=== PATIENT | female | born 1985 | race African-American/Black ===

== ENCOUNTER 2016-07-19 19:41 | Inpatient (IN) | payer OTHER ==
[2016-07-19 20:07] VITALS: BMI 32.9
--- NOTE | 2016-07-19 20:13 | PDOC ---
History of Present Illness - General History Source: Patient Exam Limitations: No Limitations - History of Present Illness Initial Comments: 07/19/16 21:32 The patient is a 30 year old female presenting with her family, with no significant past medical history, who presents to the emergency department with abdominal pain, chills, fever and headache s/p 9 days ago. She describes her abdominal pain as ranging from moderate to severe, without radiation. She notes that the pain is exacerbated with movement. She also notes that the pain has been progressing in severity since the . She states that the pain is localized in the site and mildly in her epigastric. She notes that she has recently noted a foul order coming from the incision site. She notes that she is currently breast feeding her and is experiencing some breast pain. She states that she had a similar experience last time she had a . She describes her headache as mild, without radiation or modifying factors. The patient denies chest pain, shortness of breath and dizziness. Denies nausea , vomit, diarrhea and constipation. Denies dysuria, frequency, urgency and hematuria. Allergies: None Past surgical history: (x2) Social history: No alcohol, tobacco or drug use reported <Juno Hillman - Last Filed: 07/20/16 01:45> <Lukas Ann - Last Filed: 07/20/16 02:11> - General Chief Complaint: Pain Stated Complaint: PAIN Time Seen by Provider: 07/19/16 20:13 Past History <Juno Hillman - Last Filed: 07/20/16 01:45> - Psycho/Social/Smoking Cessation Hx Anxiety: No Suicidal Ideation: No Smoking History: Never smoked Have you smoked in the past 12 months: No Information on smoking cessation initiated: No Hx Alcohol Use: No Drug/Substance Use Hx: No Substance Use Type: None <Lukas Ann - Last Filed: 07/20/16 02:11> - Past Medical History Allergies/Adverse Reactions: Allergies Allergy/AdvReac Type Severity Reaction Status Date / Time shellfish derived Allergy Verified 06/10/16 21:30 Home Medications: Ambulatory Orders Iron 18 mg PO DAILY 05/12/16 Vits #93/Iron Fum/FA [ Formula Tablet] 1 each PO DAILY Review of Systems - Review of Systems Able to Perform ROS?: Yes Comments:: 07/19/16 21:32 CONSTITUTIONAL: (+) Fever, chills. No fatigue EYES: No visual changes ENT: No ear pain, no sore throat CARDIOVASCULAR: No chest pain, no palpitations RESPIRATORY: No cough, no SOB GI: (+) Abdominal pain. No nausea, no vomiting, no constipation, no diarrhea GENITOURINARY: No dysuria, no frequency, no hematuria MUSKULOSKELETAL: No backpain, no joint pain, no myalgias SKIN: No rash NEURO: (+) headache <Juno Hillman - Last Filed: 07/20/16 01:45> *Physical Exam - Vital Signs Last Vital Signs Temp Pulse Resp BP Pulse Ox 102.2 F H 101 H 20 102/61 98 07/19/16 20:03 07/19/16 20:03 07/19/16 20:03 07/19/16 20:03 07/19/16 20:03 <Juon Hillman - Last Filed: 07/20/16 01:45> - Vital Signs Last Vital Signs Temp Pulse Resp BP Pulse Ox 102.2 F H 101 H 20 102/61 98 07/19/16 20:03 07/19/16 20:03 07/19/16 20:03 07/19/16 20:03 07/19/16 20:03 - Physical Exam Comments: 07/19/16 21:36 EXAMINATION CONSTITUTIONAL: Awake and alert; well-nourished; in mild distress HEAD: Normocephalic; atraumatic EYES: PERRL; EOM intact; no photophobia ENMT: External appears normal; mm-dry NECK: Supple; non-tender; no cervical lymphadenopathy CARD: Normal S1, S2; no murmurs, rubs, or gallops RESP: Normal chest excursion with respiration; breath sounds clear and equal bilaterally; no wheezes, rhonchi, or rales ABD: Soft, non-distended; + mild to moderate suprapubic, left lower quadrant and periumbilical tenderness to palpation; infraumbilical transverse incision reveals small area of dehiscence with drainage of foul-smelling discharge; no palpable organomegaly, no palpable hernias EXT: Normal ROM in all four extremities; non-tender to palpation; distal pulses intact SKIN: Warm, dry, no rash NEURO: No focal neurological deficiencies. <Lukas Ann - Last Filed: 07/20/16 02:11> ED Treatment Course - LABORATORY CBC & Chemistry Diagram: 07/19/16 20:40 07/19/16 20:40 - ADDITIONAL ORDERS Additional order review: Laboratory Results 07/19/16 20:56 VBG pH 7.33 POC VBG pCO2 35.5 L POC VBG pO2 37.2 Mixed VBG HCO3 18.3 L 07/19/16 20:40 RBC 4.28 MCV 84.5 MCHC 32.4 RDW 14.0 MPV 8.2 Neutrophils % Y Lymphocytes % Y - Medications Given in the ED: ED Medications Discontinued Medications Generic Name Dose Route Start Last Admin Trade Name Freq PRN Reason Stop Dose Admin Acetaminophen 1,000 mg 07/19/16 20:27 07/19/16 20:30 Ofirmev Injection - IVPB 07/19/16 20:28 1,000 mg ONCE ONE Administration <Juno Hillman - Last Filed: 07/20/16 01:45> - LABORATORY CBC & Chemistry Diagram: 07/19/16 20:40 07/19/16 20:40 <Lukas Ann - Last Filed: 07/20/16 02:11> Medical Decision Making - Medical Decision Making 07/20/16 01:44 Dr. Ku was consulted regarding the patient. [phone] <Juno Hillman - Last Filed: 07/20/16 01:45> - Medical Decision Making 07/20/16 02:09 Patient is a 30-year-old female, 10 days post at who presents with high fever, shaking chills, generalized weakness and malaise, with lower abdominal pain and drainage of foul-smelling material through the incision site. Differential diagnosis includes endometritis versus wound infection. Blood and urine cultures been obtained. Patient has received IV Zosyn as well as 2 L of normal saline. Chest x-ray reveals no evidence of infiltrate or effusion. Transvaginal ultrasound shows small amount of fluid within the endometrial cavity within the lower uterine segment as well as questionable echogenic material within the endometrial cavity itself. Numerous hyperechoic foci were identified of unclear etiology and CT of abdomen and pelvis was recommended for better identification. Patient remains hemodynamically stable and will be transferred to [facility] [place] and treatment <Lukas Ann - Last Filed: 07/20/16 02:11> *DC/Admit/Observation/Transfer - Attestations Scribe Attestion: 07/19/16 21:32 Documentation prepared by Juno Hillman, acting as spanish medical interpreter for Lukas Ann MD <Juno Hillman - Last Filed: 07/20/16 01:45> - Discharge Dispostion Admit: Yes <Lukas Ann - Last Filed: 07/20/16 02:11> Diagnosis at time of Disposition: Endometritis following delivery - Referrals
[2016-07-19] MEDS ORDERED: ACETAMINOPHEN 325 MG TABLET (FP) ONE (20:19)
[2016-07-19] MEDS ORDERED: SODIUM CHLORIDE 0.9% 1000 ML INFUS.BAG IV PRN (20:25)
[2016-07-19] MEDS ORDERED: ACETAMINOPHEN 1000 MG/100 ML VIAL (NON FORMULARY) IVPB ONE (20:27)
[2016-07-19] MEDS ORDERED: ACETAMINOPHEN INJECTION 100 ML IVPB ONE (20:36)
[2016-07-19 20:57] LABS: MCH 27.4 pg (25.7-33.7); MCHC 32.4 g/dl (32.0-36.0); MEAN CELL VOLUME 84.5 fl (80-96); MEAN PLT VOLUME 8.2 fl (7.5-11.1); PLATELET COUNT 388 K/MM3 (134-434); WHITE BLOOD COUNT 18.2 K/mm3 (4.0-10.0)
[2016-07-19 21:10] LABS: VENOUS BLOOD GAS HCO3 18.3 meq/L (19-25); VENOUS PH 7.33 (7.32-7.42)
[2016-07-19 21:22] LABS: ALBUMIN 3.2 g/dl (3.4-5.0); ANION GAP 11 (8-16); CALCIUM 8.4 mg/dL (8.5-10.1); CO2 21 mmol/L (21-32); GLUCOSE,RANDOM 76 mg/dL (74-106)
[2016-07-19 21:27] LABS: ALK PHOS 106 U/L (45-117); BILIRUBIN,TOTAL 0.4 mg/dL (0.2-1.0); CREATININE 0.9 mg/dL (0.55-1.02); SGOT/AST 12 U/L (15-37); SGPT/ALT 19 U/L (12-78); TOT PROT 6.9 g/dl (6.4-8.2); TROPONIN I < 0.02 ng/ml (0.00-0.05)
[2016-07-19] MEDS ORDERED: PIPERACILLIN/TAZOB 4.5 GM/100 ML PRE-DOCKED IVPB ONE (21:29)
[2016-07-19] MEDS ORDERED: PIPERACILLIN/TAZOB 4.5 GM 100 ML IVPB ONE (21:57)
[2016-07-19 21:59] LABS: INR 1.34 (0.82-1.09); PROTHROMBIN TIME (PATIENT) 14.8 SEC (9.98-11.88)
[2016-07-19 22:02] LABS: ACTIVATED PTT 31.6 SECONDS (26.9-34.4)
[2016-07-19 22:04] LABS: URINE APPEARANCE CLEAR; URINE BILIRUBIN NEGATIVE (NEGATIVE); URINE COLOR YELLOW; URINE GLUCOSE (UA) NEGATIVE (NEGATIVE); URINE KETONE 1+ (NEGATIVE); URINE LEUK ESTERASE NEGATIVE (NEGATIVE); URINE NITRITE NEGATIVE (NEGATIVE); URINE UROBILINOGEN NEGATIVE E.U./dl (0.2-1.0)
[2016-07-19 22:22] LABS: URINE BLOOD 1+ (NEGATIVE); URINE PROTEIN 1+ (NEGATIVE)
[2016-07-19 22:38] LABS: URINE MUCUS MANY; URINE RBC 3 /hpf (0-3); URINE WBC 5 /hpf (3-5)
[2016-07-19] MEDS ORDERED: SODIUM CHLORIDE 1,000 ML IV STA (22:40)
[2016-07-19] MEDS ORDERED: DEXTROSE 5%-LACTATED RINGERS 1,000 ML IV SCH (23:05)
[2016-07-20] MEDS ORDERED: morphine CARPU-JECT 2 MG/1 ML DISP.SYRIN IVPUSH ONE (00:57)
[2016-07-20] MEDS ORDERED: DEXTROSE 5%-0.45% SALINE 1,000 ML IV SCH (01:00)
[2016-07-20] MEDS ORDERED: morphine CARPU-JECT 2 MG/1 ML DISP.SYRIN ONE (01:05)
[2016-07-20] MEDS: ACETAMINOPHEN 325 MG TABLET (FP) PO PRN ×5 (04:50→23:03)
[2016-07-20] MEDS ORDERED: IBUPROFEN 600 MG TABLET (FP) PO PRN (04:55)
[2016-07-20] MEDS: oxyCODONE HCL 5 MG TABLET PO PRN ×4 (05:05→23:03)
[2016-07-20 08:41] LABS: BASOPHIL 0.2 % (0-2.0); EOSINOPHIL 0.6 % (0-4.5); MCH 27.8 pg (25.7-33.7); MCHC 33.1 g/dl (32.0-36.0); MEAN PLT VOLUME 8.5 fl (7.5-11.1); NEUTROPHILS 89.4 % (42.8-82.8); PLATELET COUNT 330 K/MM3 (134-434); RDW 14.1 % (11.6-15.6); WHITE BLOOD COUNT 14.1 K/mm3 (4.0-10.0)
[2016-07-20 08:46] LABS: ALBUMIN 2.5 g/dl (3.4-5.0); ALK PHOS 86 U/L (45-117); ANION GAP 13 (8-16); BILIRUBIN,TOTAL 0.3 mg/dL (0.2-1.0); CALCIUM 7.6 mg/dL (8.5-10.1); CO2 20 mmol/L (21-32); CREATININE 0.8 mg/dL (0.55-1.02); GLUCOSE,RANDOM 87 mg/dL (74-106); SGOT/AST 9 U/L (15-37); SGPT/ALT 16 U/L (12-78); TOT PROT 5.6 g/dl (6.4-8.2)
--- NOTE | 2016-07-20 10:15 | CONSULT ---
Consultation: REQUESTING PROVIDER: CONSULT REQUEST: We have been asked to medically evaluate this patient for ( specify). HISTORY OF PRESENT ILLNESS: 30 y/o AAF s/p c section 10 days ago at [facility] presented to ED c/o fever, chills and malaise with lower quadrant abdominal pain. Patient also c/o foul drainage from incision. At the time of evaluation patient was lethargic and unable to give extensive history. Patient had h/o emergency for fever and possible infection during her first 11 years ago, and had complication of abdominal pain diagnosed as choleliathiasis during this current . Denies any history of STIs. PMH: asthma and anxiety PSH: 3 c-sections SH: Denies smoking, drinking or drug use FMH: noncontributory REVIEW OF SYSTEMS: CONSTITUTIONAL: Absent: fever, chills, diaphoresis, generalized weakness, malaise, loss of appetite, weight change HEENT: Absent: rhinorrhea, nasal congestion, throat pain, throat swelling, difficulty swallowing, mouth swelling, ear pain, eye pain, visual changes CARDIOVASCULAR: Absent: chest pain, syncope, palpitations, irregular heart rate, lightheadedness , peripheral edema RESPIRATORY: Absent: cough, shortness of breath, dyspnea with exertion, orthopnea, wheezing, stridor, hemoptysis GASTROINTESTINAL: Absent: abdominal pain, abdominal distension, nausea, vomiting, diarrhea, constipation, melena, hematochezia GENITOURINARY: Absent: dysuria, frequency, urgency, hesitancy, hematuria, flank pain, genital pain MUSCULOSKELETAL: Absent: myalgia, arthralgia, joint swelling, back pain, neck pain SKIN: Foul smelling drainage from incision site Absent: rash, itching, pallor HEMATOLOGIC/IMMUNOLOGIC: Absent: easy bleeding, easy bruising, lymphadenopathy, frequent infections ENDOCRINE: Absent: unexplained weight gain, unexplained weight loss, heat intolerance, cold intolerance NEUROLOGIC: Absent: headache, focal weakness or paresthesias, dizziness, unsteady gait, seizure, mental status changes, bladder or bowel incontinence PSYCHIATRIC: Absent: anxiety, depression, suicidal or homicidal ideation, hallucinations. PHYSICAL EXAMINATION Vital Signs - 24 hr 07/19/16 07/20/16 07/20/16 23:35 01:17 03:30 Temperature 99.7 F H 100.7 F H Pulse Rate Pulse Rate [ 82 90 Apical] Respiratory 16 16 Rate Blood Pressure Blood Pressure 110/68 121/75 [Left Arm] O2 Sat by Pulse 96 99 96 Oximetry (%) 07/20/16 07/20/16 04:20 06:00 Temperature 103 F H 100.4 F H Pulse Rate 92 H 86 Pulse Rate [ Apical] Respiratory 20 16 Rate Blood Pressure 126/72 110/62 Blood Pressure [Left Arm] O2 Sat by Pulse Oximetry (%) GENERAL: Awake, lethargic, and fully oriented, in mild distress. HEAD: Normal with no signs of trauma. EYES: Pupils equal, round and reactive to light, extraocular movements intact, sclera anicteric, conjunctiva clear. No lid lag. EARS, NOSE, THROAT: Ears normal, nares patent, oropharynx clear without exudates. Moist mucous membranes. NECK: Normal range of motion, supple without lymphadenopathy, JVD, or masses. LUNGS: Breath sounds equal, clear to auscultation bilaterally. No wheezes, and no crackles. No accessory muscle use. HEART: Regular rate and rhythm, normal S1 and S2 without murmur, rub or gallop. ABDOMEN: Soft, generalized tenderness, nondistended, normoactive bowel sounds, guarding, no rebound, no masses. No hepatomegaly or splenomegaly. MUSCULOSKELETAL: Normal range of motion at all joints. No bony deformities or tenderness. No CVA tenderness. UPPER EXTREMITIES: 2+ pulses, warm, well-perfused. No cyanosis. No clubbing. Cap refill <2 seconds. No peripheral edema. LOWER EXTREMITIES: 2+ pulses, warm, well-perfused. No calf tenderness. No peripheral edema. NEUROLOGICAL: Cranial nerves II-XII intact. Normal speech. PSYCHIATRIC: Cooperative. Good eye contact. Appropriate mood and affect. SKIN: Warm, dry, normal turgor, no rashes or lesions noted. Suprapubic incision without erythema or signs of infection. Laboratory Results - last 24 hr 07/20/16 07/20/16 07:30 07:30 WBC 14.1 H RBC 3.65 Hgb 10.1 L D Hct 30.6 L D MCV 84.0 MCHC 33.1 RDW 14.1 Plt Count 330 MPV 8.5 Neutrophils % 89.4 H Lymphocytes % 6.5 L Monocytes % 3.3 L D Eosinophils % 0.6 Basophils % 0.2 Sodium 141 Potassium 3.5 Chloride 108 H Carbon Dioxide 20 L Anion Gap 13 BUN 9 D Creatinine 0.8 Creat Clearance w eGFR > 60 Random Glucose 87 Calcium 7.6 L Total Bilirubin 0.3 D AST 9 L D ALT 16 Alkaline Phosphatase 86 Total Protein 5.6 L Albumin 2.5 L D Active Medications Generic Name Dose Route Start Last Admin Trade Name Freq PRN Reason Stop Dose Admin Acetaminophen 650 mg 07/19/16 23:05 07/20/16 04:50 Tylenol - PO 650 mg Q6H PRN Administration Acetaminophen 325 mg 07/20/16 04:56 07/20/16 09:33 Tylenol - PO 07/23/16 04:55 325 mg Q4H PRN Administration PAIN Ibuprofen 600 mg 07/20/16 04:55 Motrin - PO Q8H PRN FEVER Oxycodone HCl 5 mg 07/20/16 04:56 07/20/16 09:29 Roxicodone - PO 5 mg Q4H PRN Administration PAIN ASSESSMENT/PLAN: Sepsis secondary to endometritis, pospartum. Patient started on Zosyn 4.75 mg in ED and appears to be responding as WBCs are trending down will continue with stat dose of Zosyn. Continue IVF and ABx as per ID consult and culture and sensitives from bld cx and UC. Continue pain medication oxycodone q4h prn for severe pain Please continue care as per ID and [employer]. Dispo: Reconsult as needed.Thank you for this consultative opportunity. Problem List - Problems (1) Sepsis Code(s): A41.9 - SEPSIS, UNSPECIFIED ORGANISM (2) Endometritis following delivery Code(s): O86.12 - ENDOMETRITIS FOLLOWING DELIVERY Visit type - Emergency Visit Emergency Visit: Yes ED Registration Date: 07/19/16 Care time: The patient presented to the Emergency Department on the above date and was hospitalized for further evaluation of their emergent condition. - New Patient This patient is new to me today: Yes Date on this admission: 07/20/16 - Critical Care Critical Care patient: No
[2016-07-20] MEDS ORDERED: PIPERACILLIN/TAZOB 4.5 GM/100 ML PRE-DOCKED IVPB ONE (11:00)
--- NOTE | 2016-07-20 11:06 | PN ---
Progress Note (short form) - Note Progress Note: ID consult dictated imp/reccd 30 year old female s/p csection 07/09 at [facility], discharged home 07/12- (no antibiotics) has had persistent abdominal pain since discharge home.yesterday had fever and foul smelling drainage from the csection incision and came to ED has been taking motrin for pain every 5 hours since discharge home no nausea or vomiting fever to 103 CT scan /transvaginal sono done in ED, official report pending started on zosyn cllinically temps are down but she is still uncomfortable with abdominal pain , currently no erythema or drainage from the wound most of the pain is located to the left aspect of the wound fevers post csection on 07/09 with abdominal pain ?wound infection (reports drainage now resolved) ?endometritis vanco/zosyn official reading of ct scan 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
--- NOTE | 2016-07-20 12:06 | EKG ---
Test Reason : Blood Pressure : / mmHG Vent. Rate : 082 BPM Atrial Rate : 082 BPM P-R Int : 160 ms QRS Dur : 072 ms QT Int : 376 ms P-R-T Axes : 064 017 005 degrees QTc Int : 439 ms NORMAL SINUS RHYTHM POSSIBLE LEFT ATRIAL ENLARGEMENT NONSPECIFIC T WAVE ABNORMALITY ABNORMAL ECG NO PREVIOUS ECGS AVAILABLE Confirmed by MD PIERCE, SHIRA ([id number]) on 07/20/2016 12:06:21 PM Referred By: Confirmed By:SHIRA PELAYO MD
[2016-07-20] MEDS: VANCOMYCIN 1 GRAM (PRE-DOCKED) 1,000 MG/250 ML BAG IVPB SCH (12:10)
--- NOTE | 2016-07-20 14:11 | CONS ---
DATE OF CONSULTATION: 07/20/2016 INFECTIOUS DISEASE CONSULTATION REQUESTING PHYSICIAN: Alfonso Foster MD HISTORY OF PRESENT ILLNESS: This is a 30-year-old female status post section at [facility] on July 09. She was discharged home on July 14 on that Friday on prenatals, iron, stool softeners, Motrin and Zoloft. She has continued to have abdominal discomfort since discharge and has been taking Motrin 400 mg every 5-6 hours. She yesterday noted that she had fever and chills. She also noted a foul odor and drainage coming from the incision site. When she was examined in the emergency room she was noted to have a small area of dehiscence with foul-smelling drainage from the wound. I am asked to see her for fever and antibiotic management. She had cultures sent and she was started on piperacillin/tazobactam. The patient has no chest pain, shortness of breath. She denies nausea, vomiting, diarrhea or constipation. She has no dysuria. She is still having some vaginal bleeding. ALLERGIES: No known drug allergies. PAST MEDICAL HISTORY: Is notable for history of sections. This is her third. She is HIV negative. FAMILY HISTORY: Noncontributory. SOCIAL HISTORY: She lives at home. She is single. She is unemployed. She has 3 children, 11, 10 and now the baby. There is no history of any cigarette or substance use. REVIEW OF SYSTEMS: Of note, when she had her last child 20 years ago she had a postoperative wound infection. She denies any travel. She denies any nausea, vomiting, diarrhea, dysuria. ALLERGIES: Shellfish. MEDICATIONS AN OUTPATIENT: Include iron, prenatals, stool softeners, Motrin and Zoloft. PHYSICAL EXAMINATION; GENERAL: She is awake and alert. VITAL SIGNS: Temperature 100.4, T-max is 103, pulse is 86, blood pressure 110/62, respiratory rate 16. HEENT: Normocephalic. Eyes are anicteric. She has no thrush. NECK: Supple. LUNGS: Clear to auscultation. HEART: Regular rate and rhythm. ABDOMEN: Soft. She has no distention. She has diffuse lower abdominal discomfort to palpation more localized to the left side. She has no erythema or induration of the incision and currently there is no drainage. EXTREMITIES: Without edema. SKIN: She has no rash. LABORATORIES ON ADMISSION: White count was 18.2 last night, this morning is 14.1, hemoglobin 10.1, platelets 330. INR is 1.3. BUN 9, creatinine 0.8. LFTs are normal. Urinalysis has 5 white cells. Blood cultures and cultures from the abdominal wound are pending. Preliminary CAT scan reading reveals no evidence of any gas and no collection at the incision site. Official reports are pending. IMPRESSION AND RECOMMENDATIONS: In summary this is a 30-year-old woman with fever post section on July 09 with abdominal pain . Concerns would include wound infection and endometritis. We will treat her with broad-spectrum antibiotics, vancomycin and Zosyn, obtain official reading of the CAT scan. She has been admitted to [facility] and will followup cultures which have all been sent. Further recommendations to follow based on her clinical course. DEVIN LYN M.D. [id number]
[2016-07-20] MEDS: PIPERACILLIN/TAZOB 4.5 GM/100 ML PRE-DOCKED IVPB SCH (17:47)
[2016-07-20] MEDS: SODIUM CHLORIDE 1,000 ML IV SCH (17:57)
--- NOTE | 2016-07-20 21:36 | HP ---
Past Medical History - Primary Care Physician PCP:: Alfonso Foster - Admission Chief Complaint: fever, chills , abdominal pain History of Present Illness: 30 yo f with hx of repeat c/sat [facility] , c/o of fever, chills . low abdominal pain , no dysuria, no foul smelling vaginal dischsrge, has small amt.of vaginal bleeding History Source: Patient Limitations to Obtaining History: No Limitations - Past Medical History ...: 2 ...Para: 2 Additional OB History: two c/s - Past Surgical History Past Surgical History: Yes: Hx Myomectomy: No Hx Transabdominal Cerclage: No - Smoking History Smoking history: Never smoked Have you smoked in the past 12 months: No - Alcohol/Substance Use Hx Alcohol Use: No - Social History History of Recent Travel: No Home Medications - Allergies Allergies/Adverse Reactions: Allergies Allergy/AdvReac Type Severity Reaction Status Date / Time shellfish derived Allergy Verified 06/10/16 21:30 - Home Medications Home Medications: Ambulatory Orders Iron 18 mg PO DAILY 05/12/16 Vits #93/Iron Fum/FA [ Formula Tablet] 1 each PO DAILY Review of Systems - Review of Systems Constitutional: reports: Chills, Fever, Weakness Eyes: reports: No Symptoms HENT: reports: No Symptoms Neck: reports: No Symptoms Respiratory: reports: No Symptoms Gastrointestinal: reports: Abdominal Pain Genitourinary: reports: No Symptoms Breasts: reports: No Symptoms Reported Musculoskeletal: reports: Back Pain Integumentary: reports: No Symptoms Neurological: reports: No Symptoms Endocrine: reports: No Symptoms Hematology/Lymphatic: reports: No Symptoms Psychiatric: reports: No Symptoms Physical Exam-DIRECTOR PAYER Vital Signs: Vital Signs Temperature 98.1 F 07/20/16 21:04 Pulse Rate 61 07/20/16 17:00 Respiratory Rate 18 07/20/16 17:00 Blood Pressure 116/67 07/20/16 17:00 O2 Sat by Pulse Oximetry (%) 97 07/20/16 09:00 Constitutional: Yes: Well Nourished, No Distress, Calm Eyes: Yes: WNL, Conjunctiva Clear, EOM Intact HENT: Yes: WNL, Atraumatic, Normocephalic Neck: Yes: WNL, Supple, Trachea Midline Cardiovascular: Yes: WNL, Regular Rate and Rhythm Respiratory: Yes: WNL, Regular, CTA Bilaterally Gastrointestinal: Yes: WNL, Normal Bowel Sounds ...Rectal Exam: Yes: WNL Renal/: Yes: WNL Pelvis: Yes: WNL Vaginal Exam: Yes: Normal Cervix: Yes: Normal Uterus: Yes: Enlarged (post ) ....Post : Yes: Uterus firm, Slight lochia rubra Breast(s): Yes: WNL Musculoskeletal: Yes: WNL Extremities: Yes: WNL Edema: No Integumentary: Yes: WNL Wound/Incision: Yes: Well Approximated (foul smell) Neurological: Yes: WNL, Alert, Oriented ...Motor Strength: WNL Psychiatric: Yes: WNL, Alert, Oriented Labs: CBC, BMP 07/20/16 07:30 07/20/16 07:30 Problem List - Problem (1) Endometritis Code(s): N71.9 - INFLAMMATORY DISEASE OF UTERUS, UNSPECIFIED (2) Wound infection after surgery Code(s): T81.4XXA - INFECTION FOLLOWING A PROCEDURE, INITIAL ENCOUNTER Qualifiers: Encounter type: initial encounter Qualified Code(s): T81.4XXA - Infection following a procedure, initial encounter Assessment/Plan plan septic work up, iv antibiotics, ID consult
[2016-07-21] MEDS: PIPERACILLIN/TAZOB 4.5 GM/100 ML PRE-DOCKED IVPB SCH ×3 (01:32→17:13)
[2016-07-21] MEDS: oxyCODONE HCL 5 MG TABLET PO PRN ×3 (10:24→22:11)
[2016-07-21] MEDS: ACETAMINOPHEN 325 MG TABLET (FP) PO PRN ×3 (10:27→22:12)
[2016-07-21] MEDS: VANCOMYCIN 1 GRAM (PRE-DOCKED) 1,000 MG/250 ML BAG IVPB SCH ×3 (11:41→23:32)
[2016-07-21] MEDS ORDERED: PT OWN MED DRAWER 7, Y5N ONE (12:07)
[2016-07-21] MEDS: SODIUM CHLORIDE 1,000 ML IV SCH (12:14)
--- NOTE | 2016-07-21 14:16 | PN ---
Progress Note (short form) - Note Progress Note: much more awake and alert no nausea or vomiting still reports abdominal discomfort- lower abdomen more left then right sided no fevers Vital Signs Period Temp Pulse Resp BP Sys/Harris Pulse Ox Last 24 Hr 98.1 F-98.4 F 61-72 18-20 102-126/60-79 97-98 cor-rrr lungs clear abd soft,no guarding, lower abdominal discomfort LLQ, no incisional drainage CBC, BMP 07/20/16 07:30 07/20/16 07:30 Microbiology 07/19/16 20:40 Abdomen Gram Stain - Final 07/19/16 20:40 Abdomen Wound Culture - Preliminary 07/19/16 21:51 Urine - Urine Clean Catch Urine Culture - Final NO GROWTH OBTAINED 07/19/16 20:40 Blood - Peripheral Venous Blood Culture - Preliminary NO GROWTH OBTAINED AFTER 24 HOURS, INCUBATION TO CONTINUE FOR 4 DAYS. 07/19/16 20:40 Blood - Peripheral Venous Blood Culture - Preliminary NO GROWTH OBTAINED AFTER 24 HOURS, INCUBATION TO CONTINUE FOR 4 DAYS. a/p fevers post csection on 07/09 with abdominal pain ?wound infection (reports drainage now resolved) ?endometritis vanco/zosyn check vanco trough f/u cultures Problem List - Problems (1) Endometritis following delivery Code(s): O86.12 - ENDOMETRITIS FOLLOWING DELIVERY (2) Wound infection after surgery Code(s): T81.4XXA - INFECTION FOLLOWING A PROCEDURE, INITIAL ENCOUNTER Qualifiers: Encounter type: initial encounter Qualified Code(s): T81.4XXA - Infection following a procedure, initial encounter (3) S/P Code(s): Z98.891 - HISTORY OF UTERINE SCAR FROM PREVIOUS SURGERY
[2016-07-21] MEDS: PRENATAL VITAMINS W/ FOLIC ACID TABLET (FP) PO SCH (14:56)
--- NOTE | 2016-07-21 22:00 | PN ---
Progress Note (short form) - Note Progress Note: HD 2 , afebrile, feels better today, minimal pain, no wound discharge CBC, BMP 07/20/16 07:30 07/20/16 07:30 Last Vital Signs Temp Pulse Resp BP Pulse Ox 98.2 F 60 18 128/68 98 07/21/16 19:01 07/21/16 19:01 07/21/16 20:42 07/21/16 19:01 07/21/16 20:42 abdomen soft, no distension, no rebound incision dry impression, afebrile, pain improved plan cont iv antibiotic 24 hr more ,then d/c home on po antibiotics all cultures negative so far Problem List - Problems (1) Endometritis Code(s): N71.9 - INFLAMMATORY DISEASE OF UTERUS, UNSPECIFIED (2) Wound infection after surgery Code(s): T81.4XXA - INFECTION FOLLOWING A PROCEDURE, INITIAL ENCOUNTER Qualifiers: Encounter type: initial encounter Qualified Code(s): T81.4XXA - Infection following a procedure, initial encounter
[2016-07-22] MEDS: PIPERACILLIN/TAZOB 4.5 GM/100 ML PRE-DOCKED IVPB SCH ×3 (01:47→17:55)
[2016-07-22 08:03] LABS: MCH 27.8 pg (25.7-33.7); MEAN PLT VOLUME 8.1 fl (7.5-11.1); PLATELET COUNT 335 K/MM3 (134-434); RDW 13.7 % (11.6-15.6); WHITE BLOOD COUNT 5.5 K/mm3 (4.0-10.0)
--- NOTE | 2016-07-22 08:23 | PN ---
Progress Note (short form) - Note Progress Note: continue to feel better on iv antibiotic , afebrile Last Vital Signs Temp Pulse Resp BP Pulse Ox 97.7 F 62 20 142/72 99 07/22/16 07:48 07/22/16 07:48 07/22/16 07:48 07/22/16 07:48 07/21/16 22:32 abdomen soft, non tensder incision dry, clean ,no discharge cbc pending if wbc normal will cont iv antibiotic for 24 hr more. if culturs negative d/c home in am on po Augmentin Problem List - Problems (1) Endometritis Code(s): N71.9 - INFLAMMATORY DISEASE OF UTERUS, UNSPECIFIED (2) Wound infection after surgery Code(s): T81.4XXA - INFECTION FOLLOWING A PROCEDURE, INITIAL ENCOUNTER Qualifiers: Encounter type: initial encounter Qualified Code(s): T81.4XXA - Infection following a procedure, initial encounter
[2016-07-22 08:48] LABS: CALCIUM 8.2 mg/dL (8.5-10.1); COCKROFT - GAULT 121.108; CREATININE 0.8 mg/dL (0.55-1.02)
[2016-07-22] MEDS ORDERED: PT OWN MED DRAWER 7, Y5N ONE ×2 (09:52→23:38)
[2016-07-22] MEDS: PRENATAL VITAMINS W/ FOLIC ACID TABLET (FP) PO SCH (10:15)
[2016-07-22] MEDS: VANCOMYCIN 1 GRAM (PRE-DOCKED) 1,000 MG/250 ML BAG IVPB SCH (12:16)
[2016-07-22] MEDS: oxyCODONE HCL 5 MG TABLET PO PRN (13:46)
[2016-07-22] MEDS: ACETAMINOPHEN 325 MG TABLET (FP) PO PRN (13:47)
--- NOTE | 2016-07-22 14:49 | PN ---
Progress Note (short form) - Note Progress Note: less abdominal pain Vital Signs Period Temp Pulse Resp BP Sys/Harris Pulse Ox Last 24 Hr 97.7 F-98.7 F 56-71 18-20 102-142/52-92 98-99 cor-rrr lungs clear abd soft,much less tender ext no edema CBC, BMP 07/22/16 07:15 07/22/16 07:15 Laboratory Tests 07/22/16 08:04 Vancomycin Trough 10.696 H Microbiology 07/19/16 20:40 Abdomen Gram Stain - Final 07/19/16 20:40 Abdomen Wound Culture - Preliminary 07/19/16 20:40 Blood - Peripheral Venous Blood Culture - Preliminary NO GROWTH OBTAINED AFTER 48 HOURS, INCUBATION TO CONTINUE FOR 3 DAYS. 07/19/16 20:40 Blood - Peripheral Venous Blood Culture - Preliminary NO GROWTH OBTAINED AFTER 48 HOURS, INCUBATION TO CONTINUE FOR 3 DAYS. 07/19/16 21:51 Urine - Urine Clean Catch Urine Culture - Final NO GROWTH OBTAINED a/p fevers post csection on 07/09 with abdominal pain ?wound infection (reports drainage now resolved) ?endometritis vanco/zosyn to continue today will f/u wound culture agree with current plan to d/c home on augmentin in am Problem List - Problems (1) Endometritis following delivery Code(s): O86.12 - ENDOMETRITIS FOLLOWING DELIVERY (2) Wound infection after surgery Code(s): T81.4XXA - INFECTION FOLLOWING A PROCEDURE, INITIAL ENCOUNTER Qualifiers: Encounter type: initial encounter Qualified Code(s): T81.4XXA - Infection following a procedure, initial encounter (3) S/P Code(s): Z98.891 - HISTORY OF UTERINE SCAR FROM PREVIOUS SURGERY
[2016-07-22] MEDS ORDERED: DOCUSATE SODIUM 100 MG CAPSULE (FP) PO PRN (15:02)
[2016-07-23] MEDS: VANCOMYCIN 1 GRAM (PRE-DOCKED) 1,000 MG/250 ML BAG IVPB SCH ×2 (00:18→12:00)
[2016-07-23] MEDS: PIPERACILLIN/TAZOB 4.5 GM/100 ML PRE-DOCKED IVPB SCH ×2 (02:42→09:57)
[2016-07-23 06:33] VITALS: TEMP 98
--- NOTE | 2016-07-23 09:58 | PN ---
Progress Note (short form) - Note Progress Note: abdominal pain improved no drainage from incision Vital Signs Period Temp Pulse Resp BP Sys/Harris Pulse Ox Last 24 Hr 98.0 F-98.7 F 54-66 18-20 113-132/70-83 98 cor-rrr lungs clear abd soft,nt ext no edema CBC, BMP 07/22/16 07:15 07/22/16 07:15 Microbiology 07/19/16 20:40 Blood - Peripheral Venous Blood Culture - Preliminary NO GROWTH OBTAINED AFTER 72 HOURS, INCUBATION TO CONTINUE FOR 2 DAYS. 07/19/16 20:40 Blood - Peripheral Venous Blood Culture - Preliminary NO GROWTH OBTAINED AFTER 72 HOURS, INCUBATION TO CONTINUE FOR 2 DAYS. 07/19/16 20:40 Abdomen Gram Stain - Final 07/19/16 20:40 Abdomen Wound Culture - Preliminary Pending Organism 07/19/16 21:51 Urine - Urine Clean Catch Urine Culture - Final NO GROWTH OBTAINED a/p fevers post csection on 07/09 with abdominal pain ?wound infection (reports drainage now resolved) ?endometritis d/w Dr Ku spoke with microbiology wound culture is coagulase negative staph/diphtheroids agree with augmentin as planned Problem List - Problems (1) Endometritis following delivery Code(s): O86.12 - ENDOMETRITIS FOLLOWING DELIVERY (2) Wound infection after surgery Code(s): T81.4XXA - INFECTION FOLLOWING A PROCEDURE, INITIAL ENCOUNTER Qualifiers: Encounter type: initial encounter Qualified Code(s): T81.4XXA - Infection following a procedure, initial encounter (3) S/P Code(s): Z98.891 - HISTORY OF UTERINE SCAR FROM PREVIOUS SURGERY
--- NOTE | 2016-07-23 10:07 | DS ---
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 Vital Signs: Vital Signs Temperature 98.0 F 07/23/16 06:00 Pulse Rate 54 L 07/23/16 06:00 Respiratory Rate 18 07/22/16 22:33 Blood Pressure 126/83 07/23/16 06:00 O2 Sat by Pulse Oximetry (%) 98 07/22/16 21:00 Constitutional: Yes: Well Nourished, No Distress, Calm Eyes: Yes: WNL, Conjunctiva Clear, EOM Intact HENT: Yes: WNL, Atraumatic, Normocephalic Neck: Yes: WNL, Supple, Trachea Midline Cardiovascular: Yes: WNL, Regular Rate and Rhythm Respiratory: Yes: WNL, Regular, CTA Bilaterally Gastrointestinal: Yes: WNL Renal/: Yes: WNL External Genitalia: Yes: Normal Vaginal Exam: Yes: Normal Cervix: Yes: Normal, Bleeding Uterus: Yes: Enlarged (post uterus) Adnexa: Not Palpable: Left, Right Breast(s): Yes: WNL Musculoskeletal: Yes: WNL Extremities: Yes: WNL Integumentary: Yes: WNL Wound/Incision: Yes: Clean/Dry, Well Approximated Neurological: Yes: WNL, Alert, Oriented ...Motor Strength: WNL Psychiatric: Yes: WNL, Alert, Oriented Labs: CBC, BMP 07/22/16 07:15 07/22/16 07:15 Discharge Summary Reason For Visit: ENDOMETRITIS FOLLOWING DELIVERY Current Active Problems Endometritis (Acute) Endometritis following delivery (Acute) S/P (Acute) Sepsis (Acute) Wound infection after surgery (Acute) Condition: Good - Instructions Diet, Activity, Other Instructions: regular diet, follow up [facility] care 1 week, no intercourse, if fever , pain return to ER Referrals: Ramona Cheek MD [Primary Care Provider] - Disposition: HOME - Home Medications Comprehensive Discharge Medication List: Ambulatory Orders Iron 18 mg PO DAILY 05/12/16 Vits #93/Iron Fum/FA [ Formula Tablet] 1 each PO DAILY Amox-Tr/K Cl [Augmentin - 875Mg Tablet] 1 tab PO BID #14 tablet 07/23/16
[2016-07-23] MEDS ORDERED: PT OWN MED DRAWER 7, Y5N ONE (10:16)
[2016-07-23] MEDS: PRENATAL VITAMINS W/ FOLIC ACID TABLET (FP) PO SCH (10:36)
[2016-07-23 12:12] VITALS: BP 140/74; PULSE 68
== END 2016-07-23 12:22 | disposition home or self-care (01) | DRG 561 ==
LOC: JER 19:41 → JERBED 23:19 → UNDOADMIN 23:35 → JERBED 23:35 → J5S 07-20 04:42
PROVIDERS: ADMIT Obstetrics & Gynecology; ATTEND Obstetrics & Gynecology
DX: O86.0 Infection of obstetric surgical wound (principal); O85 Puerperal sepsis; O86.12 Endometritis following delivery; J45.909 Unspecified asthma, uncomplicated; F41.9 Anxiety disorder, unspecified
CPT/HCPCS: 36415; 71010-TC; 74176-TC; 76830-TC; 80048; 80053; 81003; 81015; 82550; 82803; 83605; 84484; 85025; 85027; 85610; 85730; 86850; 86870; 86900; 86901; 86902; 87040; 87070; 87086; 87205; 93005; 93010; 99284-25; G0480